=== PATIENT | male | born 1965 | race Caucasian/White ===

== ENCOUNTER → 2019-06-04 | Outpatient (CLI) | payer OTHER ==
[2019-06-04] MEDS: IOHEXOL 300 MG/ML 75 ML VIAL. IV ONE (08:35)
--- NOTE | 2019-06-04 10:29 | RAD ---
Chest CT with contrast Clinical indications: Shortness of breath. Atypical chest pain for several years which is worsening. If technique: After IV infusion of 75 cc of Omnipaque 300, helical CT scanning of the chest was performed. PQRS compliance Statement One or more of the following individualized dose reduction techniques were utilized for this study: 1. Automated exposure control 2. Adjustment of the mA and/or kV according to patient size 3. Use of iterative reconstruction technique COMPARISON: None available. FINDINGS: No enlarged thoracic lymphadenopathy is evident. No focal aneurysmal dilatation or dissection of the thoracic aorta is seen. The heart size is normal and no pericardial effusion is seen. No pleural effusion or pneumothorax is evident. No lung mass or lung nodule or lung infiltrate is seen. The proximal bronchial is patent. No lytic process is evident. No adrenal mass is evident. IMPRESSION: No acute abnormality. Electronically signed by: Finn Elliott MD (06/04/2019 10:26 AM) [id number]
== END | disposition home or self-care (01) ==
LOC: CT 08:10
PROVIDERS: ATTEND Internal Medicine Gastroenterology
DX: R07.89 Other chest pain (principal); R06.02 Shortness of breath; K21.9 Gastro-esophageal reflux disease without esophagitis
CPT/HCPCS: 71260; Q9967